=== PATIENT | male | born 1970 | race Caucasian/White ===

== ENCOUNTER → 2017-07-10 | Outpatient (CLI) | payer BC ==
[2016-06-29 09:59] VITALS: BP 131/80
--- NOTE | 2017-07-12 13:12 | RAD ---
Three views of the right wrist Indication: Wrist pain Findings: There is no fracture dislocation within the right wrist. No significant degenerative change within the radiocarpal joint. No localizing soft tissue swelling. Impression: No radiographic abnormality within the right wrist. Reported By:
--- NOTE | 2017-07-12 13:13 | RAD ---
Three views of the left wrist Indication: Left wrist pain Findings: There is no fracture or dislocation within the left wrist. Radiocarpal joint spaces and ali gnment are maintained. No localizing soft tissue swelling. Impression: No radiographic abnormality within the left wrist. Reported By:
--- NOTE | 2017-07-12 13:14 | RAD ---
Three views of the left hand Indication: Left hand pain Findings: No acute fracture or dislocation within the left wrist. No localizing soft tissue swelling. There is no joint space narrowing periarticular osteopenia or erosions. No lytic or blastic lesion. Impression: No radiographic abnormality within the left hand. Reported By:
--- NOTE | 2017-07-12 13:16 | RAD ---
Three views of the right hand Indication: Hand pain Findings: There is a small well corticated ostomy density noted along the radial aspect of the middle finger proximal phalangeal base consistent with remote injury/avulsion of the radial collateral liga ment/capsular complex. There is no acute fracture or dislocation within the right hand. No localizing soft tissue swelling. There is no joint space loss, periarticular osteopenia or erosion within the r ight hand. Impression: Chronic appearing tiny fracture deformity at the base of the middle finger proximal phala nx likely representing sequela of chronic capsular/radial collateral ligamentous injury. There is no acute fracture, dislocation or significant degenerative change within the right hand. Reported By:
== END ==
LOC: RAD 13:27
PROVIDERS: ATTEND Nurse Practitioner Family
DX: M79.641 Pain in right hand (principal)
CPT/HCPCS: 73100; 73130

== ENCOUNTER → 2017-07-24 | Outpatient (CLI) | payer BC ==
[2016-06-29 09:59] VITALS: BP 131/80
--- NOTE | 2017-07-24 14:10 | MRI ---
MRI right hand without contrast Indication: Right hand pain and swelling Comparison: Radiographs 07/10/2017 Technique: Multiplanar, multi sequence MR images of the right hand were obtained without contrast. Findings: Motion artifact on multiple sequences mildly limits the study. MRI wrist reported separately. There is a 2 mm corticated nonedematous ossific density along the radial aspect of the base of the m iddle finger proximal phalanx corresponding to the recent radiographic finding; again, this is likely sequela from remote injury. No evidence for acute fracture or subluxation. The flexor and extensor t endons are intact, but there is mildly increased peritendinous fluid about the palmar portions of the index, long, middle, and little finger flexor tendons. The intrinsic muscles of the hand are unremar kable. No organizing fluid collection or soft tissue mass identified. Impression: Motion limited study demonstrating mild flexor tenosynovitis. Otherwise no significant ab normality. Reported By:
--- NOTE | 2017-07-24 14:31 | MRI ---
MRI right wrist without contrast Indication: Wrist pain and swelling Comparison: Radiographs 07/10/2017 Technique: Multiplanar multi sequence MR images of the right wrist were obtained without contrast. Findings: Some of the sequences were degraded by motion. The sagittal T2 sequence was repeated. There are mild degenerative changes at the triscaphe and thumb CMC joints. No evidence for acute frac ture or subluxation. The scapholunate and lunotriquetral intrinsic ligaments grossly intact. There is trace nonspecific fluid within the distal radioulnar joint; no high-grade TFC tear appreciated withi n non arthrographic limitations. The flexor retinaculum appears somewhat thickened, associated with f lattening and increased signal of the median nerve at the level of the hook of the hamate (for exampl e axial T2 image 7). There is mild edema about the flexor tendons within the carpal tunnel and proxim al hand. The abductor pollicis brevis and opponens pollicis muscles are mildly edematous, but not ove rtly atrophic (for example axial T2 images 6-8). Impression: 1. Thickening of the flexor retinaculum with mild flattening and increased signal of the median nerve . Correlation for carpal tunnel syndrome recommended. 2. Abductor pollicis brevis and opponens pollicis muscle edema, which could represent early neuropath ic change or mild strain. 3. Mild flexor tenosynovitis 4. Mild thumb CMC and triscaphe DJD. Reported By:
== END | disposition home or self-care (01) | DRG 556 ==
LOC: RAD 09:52
PROVIDERS: ATTEND Nurse Practitioner Family
DX: M79.641 Pain in right hand (principal); R60.0 Localized edema; M65.88 Other synovitis and tenosynovitis, other site; M19.031 Primary osteoarthritis, right wrist
CPT/HCPCS: 73221

== ENCOUNTER 2017-09-20 20:30 | Emergency (ER) | payer BC ==
[2017-09-20 20:46] VITALS: BP 131/77; BMI 22.7
[2017-09-20] MEDS ORDERED: XYLOCAINE 1 % (PLAIN) ONE (21:06)
--- NOTE | 2017-09-20 21:20 | DR.GENAD ---
HPI - PCP Primary Care Physician: nfd - Complaint/Symptoms Chief Complaint:: injured finger - Nurses notes reviewed Nurses Notes Review: Yes - Source History Provided: Patient - Mode of Arrival Mode of Arrival: Ambulatory - Timing Onset of Chief Complaint: 09/20/17 PMH - PMH Past Medical History: Yes Past Medical History: Ventricular Tachycardia Past Surgical History: Yes Surgical History: Ortho Surgery - Family History History of Family Medical Conditions: Yes Family Medical History: Diabetes Mellitus, Hypertension - Social History Does patient currently use any type of tobacco product: Yes Have you used tobacco products in the last 12 months: Yes Type of Tobacco Use: Cigarettes Does any household member use tobacco: Yes Alcohol Use: None Do you use any recreational Drugs:: No Lives With: Family Lives Where: Home - infectious screening In the last 2 months have you had wt loss of >10#?: NO Have you had fever, night sweats or hemotysis?: No Have you traveled outside the country in the last 6 months?: No Isolation: Standard PE - Vital Signs Vitals: Temperature 98.1 F Pulse Rate 83 Respiratory Rate 18 Blood Pressure 131/77 O2 Sat by Pulse Oximetry 97 - Discharge Plan Condition: Stable Prescriptions: Cephalexin [KEFLEX CAP 500 MG *] 500 mg PO TID #30 cap - Follow ups/Referrals Follow ups/Referrals: [facility],None [Primary Care Provider] - 3 days - Instructions Instructions: Crush Injury, Fingers or Toes, [id number], Nail Bed Laceration Additional Instructions: RETURN TO ED IF WORSE. CONTINUE WITH MOTRIN YOU HAVE AT HOME.
== END 2017-09-20 23:01 | disposition home or self-care (01) ==
LOC: ER 20:30
DX: S67.194A Crushing injury of right ring finger, initial encounter (principal); S61.211A Laceration without foreign body of left index finger without damage to nail, initial encounter; W29.8XXA Contact with other powered hand tools and household machinery, initial encounter; Y92.9 Unspecified place or not applicable
CPT/HCPCS: 73130; 99282; J2001